=== PATIENT | female | born 1995 | race Two or more races ===

== ENCOUNTER 2019-03-20 15:29 | Inpatient (IN) | payer OTHER ==
[2019-03-20] MEDS ORDERED: MISOPROSTOL 0.2 MG TABLET ONE (15:51)
[2019-03-20] MEDS ORDERED: LIDOCAINE 1% INJ-PF (10 MG/ML) 30 ML SDV ONE (15:51)
[2019-03-20] MEDS ORDERED: OXYTOCIN 10 UNIT/ML VIAL ONE (15:51)
[2019-03-20] MEDS ORDERED: OXYTOCIN/NORMAL SALINE 20 UNIT/1,000 ML RTUINJ ONE (15:52)
[2019-03-20] MEDS ORDERED: RINGERS SOLUTION,LACTATED 1,000 ML IV PRN (15:52)
--- NOTE | 2019-03-20 16:09 | Admission Physical ---
Datetime Report Generated by CPN: 03/20/2019 16:09 CURRENT ADMISSION Hx Assessment: The History has been Reviewed and is Current Chief Complaint: Uterine Contractions Indication for Induction: Not Applicable Admit Impression : Term, Intrauterine ; Active Labor Admit Plan: Admit to Unit; Initiate Labor Protocol ALLERGIES Medication Allergies: No Latex: No Latex Allergies Food Allergies: none Environmental Allergies: none OBSTETRICAL HISTORY EDC: 03/29/2019 00:00 : 2 Para: 0 Ectopic: 1 Livin Gestational Diabetes: No Rh Sensitization: No Incompetent Cervix: No DAYLIN: No Infertility: No ART Treatment: No Uterine Anomaly: No IUGR: No Hx Previous C/S: No Macrosomia: No Hx Loss/Stillborn: No PIH: No Hx : No Placenta Previa/Abruption: No Depression/PP Depression: No PTL/PROM: No Post Hemorrhage: No Current Procedures: Ultrasound Obstetrical History Comments: G1- ectopic 2018 right tube removed G2- current SEE RECORDS Alcohol: No Marijuana : No Cocaine: No Other Illicit Drugs: No Cigarettes: Never Smoker. 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 Heart Disease: No Hosp/Surgery: Yes Autoimmune Disorder: No Anesthetic Complications: No Kidney Disease: No Abnormal Pap Smear: No Neuro/Epilepsy: No Psychiatric Disorders: No Other Medical Diseases: No Hepatitis/Liver Disease: No Significant Family History: No Varicosities/Phlebitis: No Trauma/Violence : No Thyroid Dysfunction: No Medical History Comments: ovarian cyst, ectopic INFECTIOUS HISTORY Gonorrhea: No Genital Herpes: No Chlamydia: No Tuberculosis: No Syphilis: No Hepatitis: No HIV/AIDS Exposure: No Rash or Viral Illness: No HPV: No PHYSICAL EXAM General: Normal Heart: Normal Lungs: Normal Breast: Normal Back: Normal Abdomen: Normal Genitourinary Exam: Normal Extremities: Normal Pelvic Type: Adequate Vital Signs: Reviewed; Within Normal Limits VAGINAL EXAM Dilatation: 7 Effacement: 100 Station: 0 Contraction Comments: 3-6 MEMBRANES Membranes: Bulging FETUS A EGA: 38.5 Monitoring: External US Variability: Moderate 6-25bpm FHR Category: Category I Presentation: Vertex Admit Comment: 23yo [place], [place], GBS neg into L_D with contractions on and off since monday that intensified this AM. Significant hx of ectopic and tube removal with first as well as tachycardia during this . Plan is to obtain epidural at this time. Anticipate delivery. PLANS FOR LABOR AND DELIVERY Labor and Delivery: None Pain Management: Epidural Feeding Preference: Breast Benefit of Breast Feed Discussed: Yes Circumcision: Yes INFORMED CONSENT Assignment: Sangita Mosley MD Signature: with User ID: Maria Esther : with User ID: Maria Esther
[2019-03-20 16:24] LABS: APPEARANCE,URINE SLIGHTLY-CLOUDY; BILIRUBIN,URINE NEGATIVE (NEGATIVE); COLOR,URINE YELLOW; GLUCOSE, URINE NEGATIVE (NEGATIVE); KETONES,URINE NEGATIVE (NEGATIVE); LEUKOCYTE ESTERASE,URINE TRACE (NEGATIVE); NITRITE,URINE NEGATIVE (NEGATIVE); PROTEIN,URINE NEGATIVE (NEGATIVE); URINE SPECIFIC GRAVITY 1.003; UROBILINOGEN,URINE NEGATIVE mg/dL (<2.0)
[2019-03-20 16:35] LABS: ABSOLUTE LYMPHOCYTES (AUTO) 1.7 10^3/uL (0.5-4.7); ABSOLUTE MONOCYTES (AUTO) 0.7 10^3/uL (0.1-1.4); ABSOLUTE NEUT (AUTO) 9.5 10^3/uL (1.7-8.2); BASOPHILS % (AUTO) 0.4 % (0-2); EOSINOPHILS % (AUTO) 0.3 % (0-6); HEMATOCRIT 34.6 % (36.0-47.0); HEMOGLOBIN 11.6 g/dL (12.0-15.5); MEAN CORPUSCULAR HEMOGLOBIN 30.4 pg (27.0-33.4); MEAN CORPUSCULAR HGB CONC 33.4 g/dL (32.0-36.0); MEAN CORPUSCULAR VOLUME 91 fl (80-97); MONOCYTES % (AUTO) 5.4 % (3-13); PLATELET COUNT 179 10^3/uL (150-450); RED BLOOD COUNT 3.81 10^6/uL (3.72-5.28); RED CELL DISTRIBUTION WIDTH 12.8 % (11.5-14.0); SEGMENTED NEUTROPHILS % (AUTO) 79.9 % (42-78); TOTAL CELLS COUNTED % (AUTO) 100 %
[2019-03-20 16:46] LABS: URINE AMPHETAMINES SCREEN NEGATIVE; URINE BARBITURATES SCREEN NEGATIVE; URINE BENZODIAZEPINES SCREEN NEGATIVE; URINE COCAINE SCREEN NEGATIVE; URINE MARIJUANA (THC) SCREEN NEGATIVE; URINE METHADONE SCREEN NEGATIVE; URINE PHENCYCLIDINE SCREEN NEGATIVE
[2019-03-20] MEDS ORDERED: BUPIVACAINE HCL 0.25 % INJ/PF (2.5 MG/1 ML) 30 ML VIAL ONE (17:12)
[2019-03-20] MEDS ORDERED: EPHEDRINE SULFATE INJ 50 MG/1 ML AMPULE ONE (17:12)
[2019-03-20] MEDS ORDERED: FENTANYL/BUPIVACAINE/NS/PF 300 MCG/150 ML RTUINJ EPI ONE (17:12)
[2019-03-20] MEDS ORDERED: OXYTOCIN/NORMAL SALINE 20 UNIT/1,000 ML RTUINJ IV PRN ×2 (18:38→22:19)
[2019-03-20] MEDS ORDERED: ACETAMINOPHEN 325 MG TABLET ONE (20:28)
[2019-03-20] MEDS ORDERED: ACETAMINOPHEN 325 MG TABLET PO ONE (20:29)
[2019-03-20] MEDS ORDERED: MORPHINE SULFATE 10 MG/ML INJ ONE (21:58)
[2019-03-20] MEDS ORDERED: MORPHINE SULFATE 10 MG/ML INJ IV ONE (21:58)
[2019-03-20] MEDS ORDERED: DIPH/PERTUSS(ACELL)/TETANUS VAC/PF 0.5 ML SYR (>=10YO) IM PRN (22:19)
[2019-03-20] MEDS ORDERED: DIBUCAINE 1% OINTMENT 56 GM TP PRN (22:19)
[2019-03-20] MEDS ORDERED: MEASLES,MUMPS&RUBELLA VACC/PF 0.5 ML VIAL SUBCUT PRN (22:19)
[2019-03-20] MEDS ORDERED: BENZOCAINE/MENTHOL AEROSOL SPRAY 56 ML TOP PRN (22:19)
[2019-03-20] MEDS ORDERED: ACETAMINOPHEN WITH CODEINE #3 TABLET PO PRN (22:19)
[2019-03-20] MEDS ORDERED: IBUPROFEN 800 MG TABLET ONE (23:20)
[2019-03-20] MEDS ORDERED: ACETAMINOPHEN WITH CODEINE #3 TABLET ONE (23:20)
--- NOTE | 2019-03-20 23:23 | Delivery Summary ---
Del Sum A-C Datetime Report Generated by CPN: 03/20/2019 23:23 DELIVERY PERSONNEL DELIVERY PERSONNEL: [id number] Delivery Doctor:: Rasheeda Jon CNM Labor and Delivery Nurse:: Cathryn Kirby RNeducation managers Nurse:: Keely Dyer RN Information Technology Audit Manager:: Corrina Cruz RN Gaming Investigator/SEISMOGRAPH HELPER: Lisset Zhang, PHARMACY DATA ANALYST MATERNAL INFORMATION Delivery Anesthesia: Epidural Medications After Delivery: Pitocin Bolus-Please Comment Meds After Delivery Comment: pitocin 20 units in 1 l ns bolusing per order Delivery QBL: 100 Delivery QBL Comment: 100 Maternal Complications: None Provider Comments: pt progressed to c/c/0 with urge to push, began pushing and with much coaching went on to deliver a viable baby boy. Baby placed on maternal abdomen, vigorous respiratory effort and cry with tactile stimulation. Cord allowed to stop pulsating then clamped x2 and cut by FOB (3vc noted, cord blood obtained). Placenta delivered spontaneously intact, fundus firm @ u-3 with minimal bleeding.Vaginal and perineal inspection revealed abrasions as stated. Mother and baby remain skin to skin and bonding. LABOR SUMMARY EDC: 03/29/2019 00:00 No. Babies in Womb: 1 Attempted: No Labor Anesthesia: Epidural LABOR INFORMATION Reason for Induction: Not Applicable Onset of Labor: 03/20/2019 07:00 Complete Dilatation: 03/20/2019 19:22 Oxytocin: Augmentation Group B Beta Strep: Negative Antibiotics # of Doses: 0 Steroids Given: None Reason Steroids Not Administered: Not Applicable MEMBRANES Membranes Rupture Method: Artificial Rupture of Membranes: 03/20/2019 16:54 Length of Rupture (hr): 4.97 Amniotic Fluid Color: Clear Amniotic Fluid Amount: Moderate Amniotic Fluid Odor: Normal STAGES OF LABOR Stage 1 hr: 12 Stage 1 min: 22 Stage 2 hr: 2 Stage 2 min: 30 Stage 3 hr: 0 Stage 3 min: 5 Total Time in Labor hr: 14 Total Time in Labor min: 57 VAGINAL DELIVERY Episiotomy: None Laceration #1: None Laceration Extension #1: N/A Other Laceration: bilateral labial abrasions Laceration Repair: Not Applicable Sponge Count Correct: Yes Sharps Count Correct: N/A CSECTION DELIVERY Primary Indication: N/A Secondary Indication: N/A CSection Incidence: N/A Labor: N/A Elective: N/A CSection Incision: N/A BABY A INFORMATION Delivery Date/Time: 03/20/2019 21:52 Method of Delivery: Vaginal Born in Route : No : N/A Forceps: N/A Vacuum Extraction: N/A Shoulder Dystocia : No PRESENTATION/POSITION BABY A Presentation: Cephalic Cephalic Presentation: Vertex Vertex Position: Left Occipital Anterior Breech Presentation: N/A PLACENTA INFORMATION BABY A Placenta Delivery Time : 03/20/2019 21:57 Placenta Method of Delivery: Spontaneous Placenta Status: Delivered SCORES BABY A Heart Rate 1 min: >100 bpm Resp Effort 1 min: Good Cry Reflex Irritability 1 min: Cough or Sneeze or Pulls Away Muscle Tone 1 min: Some Flexion of Extremities Color 1 min: Blue/Pale Resuscitation Effort 1 min: Tactile Stimulation SCORE 1 MIN: 7 Heart Rate 5 min: >100 bpm Resp Effort 5 min: Good Cry Reflex Irritability 5 min: Cough or Sneeze or Pulls Away Muscle Tone 5 min: Active Motion Color 5 min: Body [place], Extremities Blue Resuscitation Effort 5 min: Tactile Stimulation SCORE 5 MIN: 9 INFORMATION BABY A Gestational Age at Delivery: 38.5 Gestational Status: Early Term- 37- 38.6 Weeks Infant Outcome : Liveborn Infant Condition : Stable Sex: Male IDENTIFICATION BABY A Verification Date/Time: 03/20/2019 22:27 ID Band Number: [id number] Mother's Name Verified: Yes Infant RN Verifying : C. [place] RN R. Mitch RN WEIGHT/LENGTH BABY A Birthweight (gm): 4189 Weight (lb): 9 Infant Weight (oz): 4 Length (in): 20.75 Infant Length (cm): 52.71 CORD INFORMATION BABY A No. Cord Vessels: 3 Nuchal Cord : N/A Cord Blood Taken: Yes-For Eval (Mom's Blood Type - or O+) Infant Suction: Mouth; Nose ASSESSMENT BABY A Infant Complications: Multiple Variable Decels Physical Findings at Delivery: Caput Succedaneum Infant Respirations: Appears Normal Skin to Skin: Yes Directory Compiler/ALS Called : No Infant Care By: Cindy Cruz, RN Transferred To: Remains with Mother BABY B INFORMATION : N/A SIGNATURES Assignment: Sangita Mosley MD Signature: with User ID: Maria Esther : with User ID: Maria Esther
[2019-03-21] MEDS: IBUPROFEN 800 MG TABLET PO SCH ×3 (06:23→21:38)
[2019-03-21 07:47] LABS: HEMATOCRIT 31.4 % (36.0-47.0); HEMOGLOBIN 10.7 g/dL (12.0-15.5); MEAN CORPUSCULAR HGB CONC 34.1 g/dL (32.0-36.0); MEAN CORPUSCULAR VOLUME 91 fl (80-97); PLATELET COUNT 160 10^3/uL (150-450); RED BLOOD COUNT 3.45 10^6/uL (3.72-5.28); RED CELL DISTRIBUTION WIDTH 12.9 % (11.5-14.0); WHITE BLOOD COUNT 21.1 10^3/uL (4.0-10.5)
[2019-03-21] MEDS: SENNOSIDES/DOCUSATE 8.6-50 MG 1 EACH TABLET PO SCH (10:35)
[2019-03-21] MEDS: FERROUS SULFATE 325 MG TABLET PO SCH ×2 (10:35→17:44)
[2019-03-21] MEDS: PRENATAL VITAMIN W DHA CAPSULE PO SCH (10:35)
[2019-03-21] MEDS: DOCUSATE SODIUM 100 MG CAPSULE PO SCH ×2 (10:35→17:44)
[2019-03-21 11:14] LABS: HEMATOCRIT 28.1 % (36.0-47.0); HEMOGLOBIN 9.5 g/dL (12.0-15.5); MEAN CORPUSCULAR HEMOGLOBIN 30.9 pg (27.0-33.4); MEAN CORPUSCULAR HGB CONC 33.9 g/dL (32.0-36.0); MEAN CORPUSCULAR VOLUME 91 fl (80-97); PLATELET COUNT 136 10^3/uL (150-450); RED BLOOD COUNT 3.08 10^6/uL (3.72-5.28); RED CELL DISTRIBUTION WIDTH 12.8 % (11.5-14.0); WHITE BLOOD COUNT 15.8 10^3/uL (4.0-10.5)
--- NOTE | 2019-03-21 12:42 | PDOC PROGRESS REPORT ---
Subjective-OB Progress Note for:: 03/21/19 Subjective: reports bleeding slowing, pain controlled with current meds, denies needs Physical Exam (OB) Vital Signs: Temp Pulse Resp BP Pulse Ox 97.9 F 81 15 107/50 L 99 03/21/19 08:09 03/21/19 08:09 03/21/19 08:09 03/21/19 08:09 03/21/19 08:09 Intake & Output 03/20/19 03/21/19 03/22/19 06:59 06:59 06:59 Intake Total 340 Balance 340 Weight 73.3 kg - Abdomen Description: Soft, Round Hernia Present: No Fundal Description: Firm, Midline Fundal Height: u/u - u/2 - Abdominal Distension: No distension Tenderness: Nontender - Extremities Calf: Normal, Nontender Objective-Diagnostic Laboratory: 03/21/19 10:22 03/20/19 03/20/19 03/20/19 15:35 16:07 16:07 WBC 12.0 H RBC 3.81 Hgb 11.6 L Hct 34.6 L MCV 91 MCH 30.4 MCHC 33.4 RDW 12.8 Plt Count 179 Seg Neutrophils % 79.9 H Urine Color YELLOW Urine Appearance SLIGHTLY-CLOUDY Urine pH 7.0 Ur Specific [place] 1.003 Urine Protein NEGATIVE Urine Glucose (UA) NEGATIVE Urine Ketones NEGATIVE Urine Blood MODERATE H Urine Nitrite NEGATIVE Ur Leukocyte Esterase TRACE H Blood Type O POSITIVE Antibody Screen NEGATIVE 03/21/19 03/21/19 07:29 10:22 WBC 21.1 H 15.8 H RBC 3.45 L 3.08 L Hgb 10.7 L 9.5 L Hct 31.4 L 28.1 L MCV 91 91 MCH 31.0 30.9 MCHC 34.1 33.9 RDW 12.9 12.8 Plt Count 160 136 L Seg Neutrophils % Urine Color Urine Appearance Urine pH Ur Specific [place] Urine Protein Urine Glucose (UA) Urine Ketones Urine Blood Urine Nitrite Ur Leukocyte Esterase Blood Type Antibody Screen Assessment and Plan(PN) - Assessment and Plan (1) Normal vaginal delivery Is this a current diagnosis for this admission?: Yes - Time Spent with Patient Time with patient: Less than 15 minutes Medications reviewed and adjusted accordingly: Yes - Disposition Anticipated Discharge: Home Within: within 24 hours
[2019-03-21] MEDS: ACETAMINOPHEN WITH CODEINE #3 TABLET PO PRN ×2 (13:38→17:49)
[2019-03-22] MEDS: IBUPROFEN 800 MG TABLET PO SCH ×2 (05:23→13:51)
[2019-03-22] MEDS: ACETAMINOPHEN WITH CODEINE #3 TABLET PO PRN ×2 (08:19)
[2019-03-22 09:41] LABS: HEMATOCRIT 26.9 % (36.0-47.0); HEMOGLOBIN 9.1 g/dL (12.0-15.5); MEAN CORPUSCULAR HEMOGLOBIN 30.8 pg (27.0-33.4); MEAN CORPUSCULAR HGB CONC 33.8 g/dL (32.0-36.0); MEAN CORPUSCULAR VOLUME 91 fl (80-97); PLATELET COUNT 135 10^3/uL (150-450); RED BLOOD COUNT 2.95 10^6/uL (3.72-5.28); WHITE BLOOD COUNT 11.9 10^3/uL (4.0-10.5)
--- NOTE | 2019-03-22 10:37 | PDOC DISCHARGE SUMMARY ---
Final Diagnosis Discharge Date: 03/22/19 - Final Diagnosis (1) Normal vaginal delivery Is this a current diagnosis for this admission?: Yes Discharge Data - Discharge Medication Home Medications: [id number]/Iron Fum/Folic/Docusate [ 19 Tablet] 1 tab PO DAILY 03/20/19 Reason(s) for Admission: Onset of Labor Procedures: NST Intrapartum Procedure(s): Spontaneous Vaginal Delivery - Diagnosis Test Laboratory: Temp Pulse Resp BP Pulse Ox 98.1 F 75 12 103/50 L 99 03/22/19 07:29 03/22/19 07:29 03/22/19 07:29 03/22/19 07:29 03/22/19 07:29 03/20/19 03/20/19 03/21/19 15:35 16:07 07:29 RBC 3.81 3.45 L Hgb 11.6 L 10.7 L Hct 34.6 L 31.4 L Urine Opiates Screen NEGATIVE 03/21/19 03/22/19 10:22 09:30 RBC 3.08 L 2.95 L Hgb 9.5 L 9.1 L Hct 28.1 L 26.9 L Urine Opiates Screen - Discharge information/Instructions Discharge Activity: Balance Activity w/Rest, Pelvic Rest Discharge Diet: Regular Disposition: HOME, SELF-CARE Follow up with: [facility] in: 4, Weeks
[2019-03-22] MEDS: FERROUS SULFATE 325 MG TABLET PO SCH (11:02)
[2019-03-22] MEDS: SENNOSIDES/DOCUSATE 8.6-50 MG 1 EACH TABLET PO SCH (11:02)
[2019-03-22] MEDS: PRENATAL VITAMIN W DHA CAPSULE PO SCH (11:02)
[2019-03-22] MEDS: DOCUSATE SODIUM 100 MG CAPSULE PO SCH (11:02)
[2019-03-22 11:14] VITALS: BP 107/50
== END 2019-03-22 15:36 | disposition home or self-care (01) | DRG 807 ==
LOC: LC 15:29 → LR 15:51 → 2S 23:33
PROVIDERS: ADMIT Obstetrics & Gynecology; ATTEND Obstetrics & Gynecology
PROC: 10E0XZZ Delivery of Products of Conception, External Approach (ICD-10-PCS; principal; 2019-03-20)
DX: O76 Abnormality in fetal heart rate and rhythm complicating labor and delivery (principal); Z37.0 Single live birth; Z3A.38 38 weeks gestation of pregnancy
CPT/HCPCS: 36415; 80307; 81005; 85025; 85027; 86592; 86850; 86900; 86901; J2270; J2590; J3010; J3490

== ENCOUNTER 2019-04-30 21:38 | Emergency (ER) | payer OTHER ==
--- NOTE | 2019-04-30 22:14 | ER Document Report ---
ED Medical Screen (RME) - General Chief Complaint: Skin Problem Stated Complaint: BREAST INFECTION,FLU LIKE SYMPTOMS Time Seen by Provider: 04/30/19 22:10 Primary Care Provider: JENNI CRAVEN MD [Primary Care Provider] - Follow up as needed Mode of Arrival: Ambulatory Information source: Patient Notes: This 23-year-old female with history of staph infection in her breast for the past few weeks, has been taking antibiotics. Reports that she woke up yesterday with body aches. Denies fever vomiting diarrhea. Has not received the flu vaccine this year. Reports she has been taking 800 mg ibuprofen. I have greeted and performed a rapid initial assessment of this patient. A comprehensive ED assessment and evaluation of the patient, analysis of test results and completion of the medical decision making process will be conducted by additional ED providers. Dictation of this chart was performed using voice recognition software; therefore, there may be some unintended grammatical errors. TRAVEL OUTSIDE OF THE [place] IN LAST 30 DAYS: No - Related Data Allergies/Adverse Reactions: No Known Allergies Allergy (Unverified 03/20/19 16:08) Physical Exam - Vital signs Vitals: Temp Pulse Resp BP Pulse Ox 98.1 F 88 18 131/79 H 97 04/30/19 21:55 04/30/19 21:55 04/30/19 21:55 04/30/19 21:55 04/30/19 21:55 Course - Vital Signs Vital signs: Temp Pulse Resp BP Pulse Ox 98.1 F 88 18 131/79 H 97 04/30/19 21:55 04/30/19 21:55 04/30/19 21:55 04/30/19 21:55 04/30/19 21:55 Doctor's Discharge - Discharge Referrals: JENNI CRAVEN MD [Primary Care Provider] - Follow up as needed
[2019-04-30 22:55] LABS: A TYPE INFLUENZA AG NEGATIVE (NEGATIVE); B INFLUENZA AG NEGATIVE (NEGATIVE)
--- NOTE | 2019-04-30 23:25 | ER Document Report ---
ED General - General Chief Complaint: Drainage from Breast Stated Complaint: BREAST INFECTION,FLU LIKE SYMPTOMS Time Seen by Provider: 04/30/19 22:10 Primary Care Provider: JENNI CRAVEN MD [Primary Care Provider] - Follow up as needed Mode of Arrival: Ambulatory Notes: Patient is a 23-year-old female that comes to the emergency department for chief complaint of body aches. She states this started over the past day, she states she also started a mild cough, she also has some mild discomfort with urination and frequency of urination. She states that she has been treated for the past week or so for an infection in the left breast, she states that she is 6 weeks , the symptoms in her breast started 3 weeks ago when she stopped pumping, she states that she initially had a greenish discharge from the left nipple and the nipple became slightly inverted, however the greenish discharge has resolved and now there is a thick white discharge occasionally. She states the area has not gotten worse, she denies any developing redness, swelling, or increased tenderness to the past. She also denies fever. She has not been vaccinated for influenza. She denies shortness of breath or chest pain. She denies abdominal pain, nausea/vomiting. TRAVEL OUTSIDE OF THE [place] IN LAST 30 DAYS: No - Related Data Allergies/Adverse Reactions: No Known Allergies Allergy (Unverified 03/20/19 16:08) Home Medications: dicloxicillin, motrin Past Medical History - General Information source: Patient - Social History Smoking Status: Never Smoker Frequency of alcohol use: None Drug Abuse: None Lives with: Family Family History: Reviewed & Not Pertinent Patient has suicidal ideation: No Patient has homicidal ideation: No - Immunizations Immunizations up to date: Yes Hx Diphtheria, Pertussis, Tetanus Vaccination: Yes Review of Systems - Review of Systems Constitutional: See HPI EENT: No symptoms reported Cardiovascular: No symptoms reported Respiratory: No symptoms reported Gastrointestinal: No symptoms reported Genitourinary: See HPI Female Genitourinary: No symptoms reported Musculoskeletal: No symptoms reported Skin: See HPI Hematologic/Lymphatic: No symptoms reported Neurological/Psychological: No symptoms reported Physical Exam - Vital signs Vitals: Temp Pulse Resp BP Pulse Ox 98.1 F 88 18 131/79 H 97 04/30/19 21:55 04/30/19 21:55 04/30/19 21:55 04/30/19 21:55 04/30/19 21:55 - Notes Notes: GENERAL: Alert, interacts well. No acute distress. HEAD: Normocephalic, atraumatic. EYES: Pupils equal, round, and reactive to light. Extraocular movements intact. ENT: Oral mucosa moist, tongue midline. Oropharynx unremarkable. Airway patent. NECK: Full range of motion. Supple. Trachea midline. LUNGS: Clear to auscultation bilaterally, no wheezes, rales, or rhonchi. No respiratory distress. HEART: Regular rate and rhythm. No murmur ABDOMEN: Soft, non-tender. Non-distended. Bowel sounds present in all 4 quad rants. GENITOURINARY: Deferred EXTREMITIES: Moves all 4 extremities spontaneously. No edema, normal radial and dorsalis pedis pulses bilaterally. No cyanosis. BACK: no cervical, thoracic, lumbar midline tenderness. No saddle anesthesia, normal distal neurovascular exam. Moves all extremities in full range of motion. NEUROLOGICAL: Alert and oriented x3. Normal speech. Cranial nerves II through XII grossly intact. PSYCH: Normal affect, normal mood. SKIN: Slight inversion of the left nipple, no nipple drainage, skin exam along the left lateral breast with mild tenderness, minimal erythema, mild warmth. No induration or fluctuance. No notable tenderness. No nearby lymphadenopathy. Otherwise unremarkable. Exam performed with Rashard ANSARI at bedside. Course - Re-evaluation Re-evalutation: Patient with very minimal tenderness over the left breast with mild warmth, borderline erythema, no indurated or fluctuant areas. No current drainage from the breast. Appears to be mild mastitis without any evidence of abscess. Patient afebrile and well-appearing. Influenza negative. Urinalysis actually does appear to have infection and patient states she feels like she is developing one. Soft abdomen, no flank pain, no vomiting. I discussed with Dr. Chaney. Discussed with patient. Patient will be placed on Keflex for UTI/mastitis, follow-up with primary care, return if she worsens, this was discussed in detail. Patient states appreciation and agreement. - Vital Signs Vital signs: Temp Pulse Resp BP Pulse Ox 98.6 F 78 18 118/72 97 05/01/19 01:03 05/01/19 01:03 04/30/19 21:55 05/01/19 01:03 05/01/19 01:03 - Laboratory Laboratory results interpreted by me: 04/30/19 23:20 Ur Leukocyte Esterase MODERATE H Urine Ascorbic Acid 40 H Discharge - Discharge Clinical Impression: Mastitis Urinary tract infection Qualifiers: Urinary tract infection type: site unspecified Hematuria presence: without hematuria Qualified Code(s): N39.0 - Urinary tract infection, site not specified Condition: Stable Disposition: HOME, SELF-CARE Additional Instructions: Your influenza test is negative. Your urine does indicate a urinary tract infection. Your evaluation physically is reassuring and there does not appear to be an abscess. Recommendation is to stop the dicloxacillin, take the Keflex antibiotic as prescribed, resume pumping on the left breast to help clear the ducts, and follow-up with primary care. Return if you worsen including swelling or redness of the breast, spiking fever, vomiting, or any other concerning or worsening symptoms. Prescriptions: Cephalexin Monohydrate [Keflex 500 mg Capsule] 500 mg PO QID 7 Days #28 capsule Referrals: JENNI CRAVEN MD [Primary Care Provider] - Follow up as needed
[2019-05-01 00:19] LABS: APPEARANCE,URINE SLIGHTLY-CLOUDY; BILIRUBIN,URINE NEGATIVE (NEGATIVE); COLOR,URINE STRAW; GLUCOSE, URINE NEGATIVE (NEGATIVE); KETONES,URINE NEGATIVE (NEGATIVE); LEUKOCYTE ESTERASE,URINE MODERATE (NEGATIVE); NITRITE,URINE NEGATIVE (NEGATIVE); PROTEIN,URINE NEGATIVE (NEGATIVE); URINE SPECIFIC GRAVITY 1.009; UROBILINOGEN,URINE NEGATIVE mg/dL (<2.0)
[2019-05-01] MEDS ORDERED: CEPHALEXIN 500 MG CAPSULE PO ONE (00:38)
[2019-05-01 01:55] VITALS: BP 118/72
== END 2019-05-01 01:05 | disposition home or self-care (01) ==
LOC: ER 21:38
DX: N61.0 Mastitis without abscess (principal); N39.0 Urinary tract infection, site not specified; M79.10 Myalgia, unspecified site
CPT/HCPCS: 81001; 87086; 87804; 99283

== ENCOUNTER 2019-05-03 12:41 | Emergency (ER) | payer OTHER ==
--- NOTE | 2019-05-03 13:31 | ER Document Report ---
ED Medical Screen (RME) - General Chief Complaint: Urinary Frequency Stated Complaint: URINARY ISSUES,VOMITING Time Seen by Provider: 05/03/19 13:26 Primary Care Provider: JENNI CRAVEN MD [Primary Care Provider] - Follow up as needed Mode of Arrival: Ambulatory Information source: Patient Notes: 24-year-old female presented to ED for urinary symptoms. She states 3 weeks ago she was seen at the doctor's office and was positive for mastitis with a staph infection was started on antibiotics to dicloxacillin. Went to visit a week later in the breast was not getting better. She states the doctor put on a second round of antibiotics and told to come to the emergency room if it was getting any worse. She started the second round of antibiotics on Monday then on Monday she started getting flulike symptoms and came to the emergency room she tested negative for the flu and positive for UTI she was told to stop the dicloxacillin and start Keflex went to her doctor on Monday due to a cough and flulike symptoms. She states that the doctor told her she had a viral infection and probably bleed did not have a UTI that she needed to follow-up with them and . The women designer told the patient to not take the Keflex and to continue the dicloxacillin. She states now she is feeling worse she has pain with urination and was vomiting all night. She is having body aches. She states she has been taken Tylenol and ibuprofen temp in the ER was 98.0. He denies smoking drinking or use of any drugs. She states the baby is 6 weeks old. I have greeted and performed a rapid initial assessment of this patient. A comprehensive ED assessment and evaluation of the patient, analysis of test results and completion of medical decision making process will be conducted by an additional ED providers. TRAVEL OUTSIDE OF THE [place] IN LAST 30 DAYS: No - Related Data Allergies/Adverse Reactions: No Known Allergies Allergy (Unverified 05/01/19 15:59) Past Medical History - Social History Family history: Reviewed & Not Pertinent Renal/ Medical History: Denies: Hx Peritoneal Dialysis Past Surgical History: Reports: Hx Gynecologic Surgery - R tube removed - Immunizations Immunizations up to date: Yes Hx Diphtheria, Pertussis, Tetanus Vaccination: Yes Physical Exam - Vital signs Vitals: Temp Pulse Resp BP Pulse Ox 98 F 100 20 139/78 H 98 05/03/19 12:45 05/03/19 12:45 05/03/19 12:45 05/03/19 12:45 05/03/19 12:45 Course - Vital Signs Vital signs: Temp Pulse Resp BP Pulse Ox 98 F 100 20 139/78 H 98 05/03/19 12:45 05/03/19 12:45 05/03/19 12:45 05/03/19 12:45 05/03/19 12:45 Doctor's Discharge - Discharge Referrals: JENNI CRAVEN MD [Primary Care Provider] - Follow up as needed
[2019-05-03] MEDS ORDERED: ONDANSETRON 4 MG TAB.RAPDIS PO ONE (13:32)
[2019-05-03 14:15] LABS: APPEARANCE,URINE CLEAR; BILIRUBIN,URINE NEGATIVE (NEGATIVE); COLOR,URINE STRAW; GLUCOSE, URINE NEGATIVE (NEGATIVE); KETONES,URINE NEGATIVE (NEGATIVE); PROTEIN,URINE NEGATIVE (NEGATIVE); URINE SPECIFIC GRAVITY 1.002; UROBILINOGEN,URINE NEGATIVE mg/dL (<2.0)
[2019-05-03 14:15] LABS: ABSOLUTE BASOPHILS # (AUTO) 0.1 10^3/uL (0.0-0.2); ABSOLUTE EOSINOPHILS # (AUTO) 0.1 10^3/uL (0.0-0.6); ABSOLUTE LYMPHOCYTES (AUTO) 1.6 10^3/uL (0.5-4.7); ABSOLUTE MONOCYTES (AUTO) 0.5 10^3/uL (0.1-1.4); ABSOLUTE NEUT (AUTO) 5.5 10^3/uL (1.7-8.2); BASOPHILS % (AUTO) 0.7 % (0-2); EOSINOPHILS % (AUTO) 0.9 % (0-6); HEMATOCRIT 36.5 % (36.0-47.0); HEMOGLOBIN 12.5 g/dL (12.0-15.5); MEAN CORPUSCULAR HEMOGLOBIN 30.4 pg (27.0-33.4); MEAN CORPUSCULAR HGB CONC 34.3 g/dL (32.0-36.0); MEAN CORPUSCULAR VOLUME 89 fl (80-97); MONOCYTES % (AUTO) 6.2 % (3-13); PLATELET COUNT 288 10^3/uL (150-450); RED CELL DISTRIBUTION WIDTH 12.6 % (11.5-14.0); SEGMENTED NEUTROPHILS % (AUTO) 71.2 % (42-78); TOTAL CELLS COUNTED % (AUTO) 100 %; WHITE BLOOD COUNT 7.7 10^3/uL (4.0-10.5)
[2019-05-03 14:33] LABS: ALBUMIN 4.4 g/dL (3.5-5.0); ALKALINE PHOSPHATASE 74 U/L (38-126); ANION GAP 9 (5-19); ASPARTATE AMINO TRANSFERASE 44 U/L (14-36); BILIRUBIN,DIRECT 0.1 mg/dL (0.0-0.4); BILIRUBIN,TOTAL 0.4 mg/dL (0.2-1.3); BLOOD UREA NITROGEN 6 mg/dL (7-20); CALCIUM 9.6 mg/dL (8.4-10.2); CARBON DIOXIDE 29 mmol/L (22-30); CHLORIDE 102 mmol/L (98-107); GLUCOSE 91 mg/dL (75-110); POTASSIUM 3.7 mmol/L (3.6-5.0); TOTAL PROTEIN 7.2 g/dL (6.3-8.2)
[2019-05-03 15:36] LABS: BACTERIA (WET MOUNT) 4+ BACTERIA SEEN; EPITHELIALS (WET MOUNT) 4+ EPITHELIALS SEEN; RBCS (WET MOUNT) FEW RBCS SEEN; T.VAGINALIS (WET MOUNT) NO TRICHOMONAS SEEN; WBCS (WET MOUNT) 4+ WBCS SEEN; YEAST (WET MOUNT) NO YEAST SEEN
--- NOTE | 2019-05-03 15:46 | ER Document Report ---
ED General - General Chief Complaint: Urinary Frequency Stated Complaint: URINARY ISSUES,VOMITING Time Seen by Provider: 05/03/19 13:26 Primary Care Provider: JENNI CRAVEN MD [Primary Care Provider] - Follow up as needed Mode of Arrival: Ambulatory TRAVEL OUTSIDE OF THE [place] IN LAST 30 DAYS: No - HPI Notes: Patient is a 23-year-old female who is approximately 6 weeks who presents complaining of dry cough, body ache, nausea/vomiting over the past couple days. Patient states that she has had some vaginal discharge, but is not sure if this is normal for her or not. She has not been sexually active in about 2 months. Patient did test negative for the flu a couple days ago, but was put on antibiotics for possible UTI then was subsequently taken off of antibiotics for UTI thereafter as her urinalysis was unremarkable. She has been able to drink water without difficulty, but does have decreased solid food intake. She is otherwise urinating normally. No vaginal bleeding. She has had normal bowel movements. Denies any headache, fever, neck pain, changes in vision/speech/mentation/hearing, URI, sore throat, chest pain, palpitations, syncope, shortness of breath, wheeze, dyspnea, abdominal pain, diarrhea, urinary retention, dysuria, hematuria, back pain, or rash. - Related Data Allergies/Adverse Reactions: No Known Allergies Allergy (Unverified 05/01/19 15:59) Home Medications: tylenol. reglan Past Medical History - General Information source: Patient - Social History Smoking Status: Unknown if Ever Smoked Chew tobacco use (# tins/day): No Frequency of alcohol use: None Drug Abuse: None Family History: Reviewed & Not Pertinent Patient has suicidal ideation: No Patient has homicidal ideation: No Renal/ Medical History: Denies: Hx Peritoneal Dialysis Past Surgical History: Reports: Hx Gynecologic Surgery - R tube removed - Immunizations Immunizations up to date: Yes Hx Diphtheria, Pertussis, Tetanus Vaccination: Yes Review of Systems - Review of Systems -: Yes All other systems reviewed and negative Physical Exam - Vital signs Vitals: Temp Pulse Resp BP Pulse Ox 98 F 100 20 139/78 H 98 05/03/19 12:45 05/03/19 12:45 05/03/19 12:45 05/03/19 12:45 05/03/19 12:45 - Notes Notes: PHYSICAL EXAMINATION: GENERAL: Well-appearing, well-nourished and in no acute distress. HEAD: Atraumatic, normocephalic. EYES: Pupils equal round and reactive to light, extraocular movements intact, sclera anicteric, conjunctiva are normal. ENT: Nares patent and without discharge. oropharynx clear without exudates. No tonsilar hypertrophy or erythema. Moist mucous membranes. No sinus tenderness. NECK: Normal range of motion, supple without lymphadenopathy LUNGS: Breath sounds clear to auscultation bilaterally and equal. No wheezes rales or rhonchi. HEART: Regular rate and rhythm without murmurs, rubs, gallops. ABDOMEN: Soft, nontender, nondistended abdomen. No guarding, no rebound. Normal bowel sounds present. No CVA tenderness bilaterally. Villagran neg. No tend erness at [place]. No lower pelvic tenderness. Musculoskeletal: FROM to passive/active. Strength 5+/5. Extremities: No cyanosis, clubbing, or edema b/l. Peripheral pulses 2+. Capillary refill less than 3 seconds. NEUROLOGICAL: Normal speech, normal gait. PSYCH: Normal mood, normal affect. SKIN: Warm, Dry, normal turgor, no rashes or lesions noted. Course - Re-evaluation Re-evalutation: 05/03/19 Patient is an afebrile, well-hydrated, 22-year-old female who presents to the ED with acute URI, suspect viral, and BV. Vitals are acceptable. PE is otherwise unremarkable. Labs and CXR unremarkable aside from wet mount. Chlam/narcisa pending. Pt declined pre-treatment and is aware she may have to return if positive. Patient has no significant cardiopulmonary or immunocompromised medical conditions. Patient's lungs are clear to auscultation bilaterally without tachycardia, hypoxia, or tachypnea. Patient is tolerating p.o. without any difficulties. Low suspicion for any meningitis, sepsis, peritonsillar/pharyngeal abscess, respiratory compromise, severe dehydration, acute appendicitis, bowel obstruction, acute cholecystitis, acute cholangitis, perforated diverticulitis, incarcerated hernia, pancreatitis, perforated ulcer, peritonitis, pelvic inflammatory disease, ectopic , tubo-ovarian abscess, ovarian torsion, or other emergent systemic condition at this time. Patient is aware this condition can change from initial presentation and she needs to monitor symptoms closely. Rx for flagyl and reglan. Conservative measures otherwise for symptoms. Recheck with your PCM/OBGYN in 3-5 days. Retu rn to the ED with any worsening/concerning symptoms otherwise as reviewed in discharge. Patient is in agreement. - Vital Signs Vital signs: Temp Pulse Resp BP Pulse Ox 98 F 100 20 139/78 H 98 05/03/19 12:45 05/03/19 12:45 05/03/19 12:45 05/03/19 12:45 05/03/19 12:45 - Laboratory Result Diagrams: 05/03/19 13:50 05/03/19 13:50 Laboratory results interpreted by me: 05/03/19 13:50 BUN 6 L AST 44 H Discharge - Discharge Clinical Impression: Acute URI, Bacterial vaginosis Condition: Stable Disposition: HOME, SELF-CARE Instructions: Upper Respiratory Illness ([facility]), Vaginosis, Bacterial ([facility]), Metronidazole ([facility]) Additional Instructions: Maintain fluid intake Proper hygienic technique Keep the skin clean Tylenol/ibuprofen as needed Cold meds as needed Check in with the health department this week for further testing if warranted Your chlamydia/gonorrhea tests are pending and you will be notified if positive results; you may call in 1 day for the results as well F/u with your PCM/OBGYN in 3-5 days for a recheck Return to the ED with any development of WEN/fever, trouble with vision, eye redness, worsening pain, urethral discharge, urinary retention, blood in the u rine, flank pain, abdominal pain, n/v, Chest Pain, shortness of breath, joint pains, trouble breathing, or any other worsening/concerning symptoms as needed otherwise. Prescriptions: Metronidazole [Flagyl] 500 mg PO BID #14 tablet Metoclopramide HCl [Reglan] 10 mg PO TID #10 tablet Forms: Elevated Blood Pressure Referrals: JENNI CRAVEN MD [Primary Care Provider] - Follow up as needed
--- NOTE | 2019-05-03 15:53 | RADIOLOGY REPORT (SQ) ---
EXAM DESCRIPTION: CHEST 2 VIEWS COMPLETED DATE/TIME: 05/03/2019 3:43 pm REASON FOR STUDY: cough COMPARISON: None. TECHNIQUE: Frontal and lateral radiographic views of the chest acquired. NUMBER OF VIEWS: Two view. LIMITATIONS: None. FINDINGS: LUNGS AND PLEURA: No opacities, masses or pneumothorax. No pleural effusion. MEDIASTINUM AND HILAR STRUCTURES: No masses or contour abnormalities. HEART AND VASCULAR STRUCTURES: Heart normal size. No evidence for failure. BONES: No acute findings. HARDWARE: None in the chest. OTHER: No other significant finding. IMPRESSION: NO SIGNIFICANT RADIOGRAPHIC FINDING IN THE CHEST. TECHNICAL DOCUMENTATION: JOB ID: [id number] [employer]- All Rights Reserved Reading location - IP/workstation name: [email or web address]
[2019-05-03 16:20] VITALS: BP 117/63
[2019-05-03 17:04] LABS: CHLAM PCR NOT DETECTED (NOT DETECT)
== END 2019-05-03 16:20 | disposition home or self-care (01) ==
LOC: ER 12:41
DX: N76.0 Acute vaginitis (principal); B96.89 Other specified bacterial agents as the cause of diseases classified elsewhere; J06.9 Acute upper respiratory infection, unspecified; R11.2 Nausea with vomiting, unspecified; R05 Cough; Z79.899 Other long term (current) drug therapy
CPT/HCPCS: 99283; 36415; 87210; 83690; 84703; 85025; 80053; 81001; 87491; 87591; 71046; S0119

== ENCOUNTER 2019-05-04 09:16 | Emergency (ER) | payer OTHER ==
--- NOTE | 2019-05-04 10:38 | ER Document Report ---
ED General - General Chief Complaint: Shortness Of Breath Stated Complaint: CHEST PAIN,DIFFICULTY BREATHING Time Seen by Provider: 05/04/19 10:27 Mode of Arrival: Ambulatory Information source: Patient, Relative TRAVEL OUTSIDE OF THE [place] IN LAST 30 DAYS: No - HPI Notes: 23-year-old female presenting with with a chief complaint of worsening cough and chest wall pain. Difficulty sleeping last night. Patient was seen here yesterday by mid-level provider with similar symptoms. We note that she is 6 weeks . She is not currently breast-feeding. She denies fever. She denies hemoptysis. She is now producing some green sputum with her cough. Denies fever chills or vomiting today. Onset 3 days ago Duration persistent and worsening Quality: Burning in chest with cough or deep breath. Location anterior chest area. Radiation none. Relieving factors none. Severity moderate. Pertinent prior history: 6 weeks . - Related Data Allergies/Adverse Reactions: No Known Allergies Allergy (Verified 05/04/19 09:38) Past Medical History - Social History Smoking Status: Never Smoker Chew tobacco use (# tins/day): No Frequency of alcohol use: None Drug Abuse: None Family History: Reviewed & Not Pertinent Patient has suicidal ideation: No Patient has homicidal ideation: No Renal/ Medical History: Denies: Hx Peritoneal Dialysis Past Surgical History: Reports: Hx Gynecologic Surgery - R tube removed - Immunizations Immunizations up to date: Yes Hx Diphtheria, Pertussis, Tetanus Vaccination: Yes Review of Systems - Review of Systems Notes: Constitutional: Negative for fever. HENT: Sore throat. Eyes: Negative for visual changes. Cardiovascular: As per history of present illness. Respiratory:As per HPI. Gastrointestinal: Negative for abdominal pain, vomiting or diarrhea. Genitourinary: Negative for dysuria. Musculoskeletal: Negative for back pain. Skin: Negative for rash. Neurological: Negative for headaches, weakness or numbness. 10 point ROS negative except as marked above and in HPI. Physical Exam - Vital signs Vitals: Temp Pulse Resp BP Pulse Ox 98.5 F 101 H 24 H 138/83 H 100 05/04/19 09:27 05/04/19 09:27 05/04/19 09:27 05/04/19 09:27 05/04/19 09:27 Notes: GENERAL: Female patient of approximately stated age who is coughing and appears somewhat uncomfortable. SKIN: Good turgor no rashes. HEAD: Normocephalic atraumatic. EYES: PERRLA. Conjunctivae and sclerae clear. EARS: CANALS AND TMS CLEAR. NOSE: CLEAR nasal discharge bilaterally. MOUTH: Moist mucosa. Good dentition. No stridor or edema. No drooling. THROAT: Pharyngeal injection without exudate. NECK: Supple. No masses or thyromegaly. No adenopathy. Carotids 2+ without bruits. No JVD. BACK: Symmetrical without tenderness. CHEST: Respirations unlabored. Dry cough with few scattered rhonchi bilaterally. Mild diffuse tenderness anterior chest wall bilaterally. HEART: Regular rhythm. No murmur gallop or rub. ABDOMEN: Soft nontender without masses, organomegaly or rebound. Bowel sounds normally active. No bruits. GENITALIA: Deferred. EXTREMITIES: No edema. No calf tenderness. Cap refill less than 1.5 seconds. Dorsalis pedis and posterior tibial pulses 3+ and symmetrical. NEUROLOGICAL: GCS 15. Alert and oriented x3. Normal gait. Fluent speech. Cranial nerves II through XII intact. Sensorimotor and cerebellar normal. Normal tone. PSYCHIATRIC: Anxious. Course - Re-evaluation Re-evalutation: 05/04/19 10:52 Chart from yesterday's encounter reviewed in detail. She had a normal white count and chemistry profile at that time as well as a normal chest x-ray. Clinically I feel patient has a persistent and worsening bronchitis. She is also having substantial chest wall pain. She will receive IM Toradol and will start her on Zithromax and naproxen at home and recommend outpatient follow-up with PMD. She may return here for new or worsening symptoms. - Vital Signs Vital signs: Temp Pulse Resp BP Pulse Ox 98.5 F 101 H 24 H 138/83 H 100 05/04/19 09:27 05/04/19 09:27 05/04/19 09:27 05/04/19 09:27 05/04/19 09:27 Discharge - Discharge Clinical Impression: Chest wall pain Bronchitis, acute Qualifiers: Bronchitis organism: unspecified organism Qualified Code(s): J20.9 - Acute bronchitis, unspecified Condition: Stable Disposition: HOME, SELF-CARE Instructions: Anti-Inflammatory Medication ([facility]), Chest Wall Pain ([facility]) Additional Instructions: Bronchitis You have acute bronchitis. This disease is an infection or inflammation of the air passageways in your lungs. Symptoms usually include cough, low grade fever, shortness of breath, and wheezing. The cough usually persists for a couple of weeks. Most cases of bronchitis get better without antibiotics. We prescribe antibiotics when we believe bacteria are damaging your airways, or if there's high risk the bronchitis will worsen into pneumonia. Increase your fluid intake. A cool mist humidifier may make your lungs more comfortable. An expectorant (cough medicine that loosens phlegm) can help. If you smoke, STOP!!! Recovery from bronchitis can be somewhat slow, but you should see improvement within a day or two. Repeated episodes of bronchitis may result in lung damage -- for example, chronic bronchitis, recurrent pneumonias, or emphysema. Call the doctor if you develop increasing fever, shortness of breath, chest pain, bloody sputum, or otherwise worsen. If you have not improved at all after several days, contact the physician. Prescriptions: Naproxen 500 mg PO BID PRN #14 tablet PRN Reason: Azithromycin [Zithromax 250 mg Tablet] 250 mg PO ASDIR PRN #6 tablet PRN Reason:
[2019-05-04] MEDS ORDERED: KETOROLAC TROMETHAMINE 60 MG/2 ML SDV IM ONE ×2 (10:42→11:05)
[2019-05-04 11:21] VITALS: BP 125/72
--- NOTE | 2019-05-05 21:39 | EKG REPORT ---
SEVERITY:- BORDERLINE ECG - SINUS TACHYCARDIA PROBABLE LEFT ATRIAL ABNORMALITY : Confirmed by: Ronald Funk MD 05-May-2019 21:39:02
== END 2019-05-04 11:23 | disposition home or self-care (01) ==
LOC: ER 09:16
DX: O90.89 Other complications of the puerperium, not elsewhere classified (principal); J20.9 Acute bronchitis, unspecified; R07.89 Other chest pain
CPT/HCPCS: 93005; 93010; J1885; 96372; 99284